=== PATIENT | male | born 1980 | race Two or more races ===

== ENCOUNTER 2024-07-26 09:24 | Emergency (ER) | payer OTHER ==
[~2024-07-26] VITALS: Ht 167.6 cm; Wt 95.3 kg
[2024-07-26] MEDS ORDERED: KETOROLAC TROMETHAMINE 60 MG VIAL IM STA (11:37)
[2024-07-26] MEDS ORDERED: KETOROLAC TROMETHAMINE 60 MG VIAL IM ONE (11:41)
== END 2024-07-26 14:07 | disposition home or self-care (01) ==
LOC: ER 09:25
DX: M25.561 Pain in right knee (principal); Z88.6 Allergy status to analgesic agent
CPT/HCPCS: 73560; 96372; 99283; J1885